=== PATIENT | male | born 1960 | race Caucasian/White ===

== ENCOUNTER 2018-12-26 08:39 | Observation (INO) ==
--- NOTE | 2018-12-13 09:14 | PAT Medication Instructions ---
Medication Instructions Date of Service December 13, 2018 Home Medications aspirin [Aspirin Low Dose] 81 mg PO QAM meloxicam 7.5 mg PO QAM pantoprazole [Protonix] 20 mg PO QAM ASK your surgeon for instructions aspirin [Aspirin Low Dose] 81 mg PO QAM meloxicam 7.5 mg PO QAM Take morning of surgery With a small sip of water, OTHERWISE NOTHING TO EAT OR DRINK AFTER MIDNIGHT: pantoprazole [Protonix] 20 mg PO QAM Other Notes If you have any questions please call us at [phone] or [phone] or [phone] or [phone]
--- NOTE | 2018-12-13 09:24 | Anesthesiology Consultation ---
Date of Service December 13, 2018 Assessment & Plan (1) Encounter for pre-operative examination: - No previous anesthesia/intubation records Chart Review Chart Review: Acceptable Risk for Surgery and Patient seen in Pre Admission Testing Consults Requested none Teaching & Discussion Pre-Anesthesia Teaching/Discussion Notes: Instructed NPO after midnight before surgery, except medications with 15 cc of water. Medication instructions provided according to the PAT guidelines. History Surgery Operation Date: 12/26/18 10:25 Proposed Procedures p C6-C7 Anterior Cervical Discectomy and Fusion, Spinal Cord Monitoring - Delfino Walker DO Height/Weight Height: 6 ft Weight: 82.4 kg Allergies Allergy/AdvReac Type Severity Reaction Status Date / Time No Known Allergies Allergy Verified 12/09/18 12:04 Medications Home Medications Medication Instructions Recorded Confirmed Last Taken aspirin [Aspirin Low Dose] 81 mg PO QAM 12/09/18 12/09/18 Unknown meloxicam 7.5 mg PO QAM 12/09/18 12/09/18 Unknown pantoprazole [Protonix] 20 mg PO QAM 12/09/18 12/09/18 Unknown Past Medical History Medical History Anxiety was on meds but no longer taking Bone spur current issue - also has bulging disc in cervical neck area. left arm numbness, tingling, sharp pain and weakness. has tendency to drop things GERD (gastroesophageal reflux disease) Hx of Lyme disease 2016 Transient ischemic attack (TIA) 1994 no residual efects - Exercise / Class Metabolic Activity III < 4 Walking/Shop/Light housework (Limited since neck pain began. Able to climb FOS. Denies CP or SOB. ) Past Surgical History Surgical History H/O colonoscopy Hx of hernia repair Bilateral Past Anesthesia History No Hx of Anesthesia Complications and No Family Hx of Anesthesia Complications History of PONV No Hx of Motion Sickness and History of PONV (After colonoscopy) Social History Smoking Status: Current some day smoker tobacco type: cigarettes Smoking cigarettes per day: couple x month. Has been smoking for 20+ years off and on. Do You Dip or Chew Tobacco: No Hx Alcohol Use: Yes Alcohol type: wine and hard liquor alcohol intake frequency: a few times a month Hx Substance Use: No Review of Systems Patient denies chest pain, shortness of breath, dyspnea on exertion, palpitations. +Joint Pain (Back/Neck, Shoulder) +Acid Reflux (Controlled with current medications) +Cough/Wheezing (Occasionally when seasonal allergies are acting up) Physical Exam Vital Signs BP: 117/76 P: 84 R: 16 T: 98.4 SPO2: 97% on RA ENMT Mouth: + poor dentition Thyromental Distance: > or= 3.5 Finger Breadths (3.5) Mallampati Class: II Neck normal visual inspection, trachea midline and + limited neck extension Respiratory normal respiratory effort Auscultation: lungs clear to auscultation bilaterally Cardiovascular Rate/Rhythm: regular rate and regular rhythm Heart Sounds: no murmur Vessels: no carotid bruit Neurologic moves all extremities Psychiatric Orientation: alert and oriented x 3 Testing Laboratory Results 12/13/18 09:39 12/13/18 09:39 PT 10.4 Seconds (9.0-12.0) 12/13/18 09:39 INR 1.0 (0.9-1.1) 12/13/18 09:39 APTT 27.8 Seconds (21.0-31.0) 12/13/18 09:39 Urine Color Yellow 12/13/18 09:39 Urine Appearance Clear (Clear) 12/13/18 09:39 Urine pH 6.0 (4.5-7.5) 12/13/18 09:39 Ur Specific [place] 1.024 (1.000-1.030) 12/13/18 09:39 Urine Protein Negative (Negative) 12/13/18 09:39 Urine Glucose (UA) Negative (Negative) 12/13/18 09:39 Urine Ketones Negative (Negative) 12/13/18 09:39 Urine Nitrite Negative (Negative) 12/13/18 09:39 Ur Leukocyte Esterase Negative (Negative) 12/13/18 09:39 Blood Type A Positive 12/13/18 09:39 Antibody Screen NEGATIVE 12/13/18 09:39 Electrocardiogram Date: 12/13/18 Findings: + NSR @ (79) Minimal voltage criteria for LVH, may be normal variant Chest X-Ray Date: 12/13/18 Findings: + NAD FINDINGS: The heart is normal in size. There is no failure. There is no focal pulmonary consolidation. There are no pleural effusions. There is radiographic evidence of emphysema. IMPRESSION: Emphysema. No acute findings.
--- NOTE | 2018-12-13 10:04 | XRay Report ---
XR chest Pre-admission PA/Lat CLINICAL HISTORY: Preoperative chest COMPARISON STUDY: No previous studies for comparison. FINDINGS: The heart is normal in size. There is no failure. There is no focal pulmonary consolidation . There are no pleural effusions. There is radiographic evidence of emphysema.[ IMPRESSION: Emphysema. No acute findings. Electronically signed by: Paco Cortez M.D. 12/13/2018 10:02 AM
[2018-12-13 11:17] LABS: Basophils # (auto) 0.06 K/uL (0-0.2); Eosinophils # (auto) 0.13 K/uL (0-0.5); Eosinophils % (auto) 2.2 %; Hematocrit (blood only) 47.2 % (42-52); Hemoglobin 16.3 g/dL (14.0-18.0); Immature Granulocytes # (auto) 0.02 K/uL (0.00-0.02); Immature Granulocytes % (auto) 0.3 %; Lymphocytes # (auto) 1.71 K/uL (1.2-3.4); Lymphocytes % (auto) 28.6 %; Mean Corpuscular Hgb Conc 34.5 g/dL (32-36); Mean Platelet Volume 11.1 fL (7.4-10.4); Monocytes # (auto) 0.69 K/uL (0.11-0.59); Monocytes % (auto) 11.6 %; Neutrophils # (auto) 3.36 K/uL (1.4-6.5); Neutrophils % (auto) 56.3 %; Platelet Count 268 K/uL (130-400); RDW Coefficient of Variation 13.5 % (11.5-14.5); Red Blood Count 5.13 M/uL (4.7-6.1); White Blood Count 5.97 K/uL (4.8-10.8)
[2018-12-13 11:23] LABS: BUN Creatinine Ratio 27.2 (10-20); Calcium 8.7 mg/dl (8.5-10.1); Creatinine Clr Calc Pharmacy 143.7 ml/min; Est GFR (African American) 127.7; Est GFR (Non-African American) 110.2; Potassium 4.3 mmol/L (3.5-5.1)
[2018-12-13 11:26] LABS: Appearance Urine Clear (Clear); Bilirubin Urine Negative (Negative); Blood Urine Negative (Negative); Color Urine Yellow; Glucose Urine UA Negative (Negative); Ketones Urine Negative (Negative); Leukocyte Esterase Urine Negative (Negative); Nitrite Urine Negative (Negative); Protein Urine Negative (Negative); Specific Gravity Urine 1.024 (1.000-1.030); Urobilinogen Urine Negative (Negative)
[2018-12-13 11:34] LABS: Partial Thromboplastin Time 27.8 Seconds (21.0-31.0); Prothrombin Time 10.4 Seconds (9.0-12.0)
[~2018-12-26 08:39] MED LIST: ACETAMINOPHEN 500 MG TAB PO SCH; CEFAZOLIN 2000MG 2,000 MG/15 ML SYR IV SCH; CeleBREX 200 MG CAP PO SCH; DEXAMETHASONE SOD INJ 4 MG/ML VIAL ONE; GABAPENTIN 600 MG DOSE PO SCH; LIDOCAINE HCL 2% 2 ML VIAL/AMP(20MG/ML) INFIL ONE; LR 15ML/HR IV SCH; MIDAZOLAM HCL 1 MG/ML 2ML VIAL ONE; ONDANSETRON INJ 2 MG/ML 2 ML VIAL ONE; PROPOFOL IV EMULSION 10 MG/ML 20 ML VIAL IV ONE; fentaNYL citrate 100 MCG/2 ML VIAL ONE
[2018-12-26] MEDS ORDERED: ATROPINE SULFATE 0.1 MG/ML 10ML SYR IV PRN (09:24)
[2018-12-26] MEDS ORDERED: ePHEDrine sulfate 50 MG/ML AMP IV PRN (09:24)
[2018-12-26] MEDS ORDERED: fentaNYL citrate 100 MCG/2 ML VIAL IV PRN (09:24)
[2018-12-26] MEDS ORDERED: ONDANSETRON INJ 2 MG/ML 2 ML VIAL IV PRN ×2 (09:24→14:12)
--- NOTE | 2018-12-26 10:31 | History & Physical Bridge Note ---
Date of Service December 26, 2018 History & Physical Bridge Note I have examined the patient, reviewed the History & Physical and in the interval since the performance of the History & Physical I have noted the following changes of clinical significance: no changes noted
--- NOTE | 2018-12-26 10:32 | History & Physical Report ---
Date of Service December 26, 2018 Assessment & Plan (1) Cervical stenosis of spinal canal: Anterior cervical discectomy and fusion C6-7 Present on Admission?: Yes History of Present Illness Chief Complaint: Neck and arm pain Primary Care Provider: Anaya Feldman PA-C This is a 58-year-old male who presents with chronic persistent neck and arm pain. After failing extensive course of nonoperative care is here for surgical intervention. Allergies Allergy/AdvReac Type Severity Reaction Status Date / Time No Known Allergies Allergy Verified 12/26/18 09:33 Home Medications Home Medications Medication Instructions Recorded Confirmed Type aspirin [Aspirin Low Dose] 81 mg PO QAM 12/09/18 12/26/18 History meloxicam 7.5 mg PO QAM 12/09/18 12/26/18 History pantoprazole [Protonix] 20 mg PO QAM 12/09/18 12/26/18 History ibuprofen 800 mg PO Q6H PRN 12/26/18 12/26/18 History Past Med/Surg History Social History Preferred Language: Maltese Communication Ability: Effective Beliefs That Will Affect Care: None Current Living Situation: Alone Feels Safe at Home: Yes Safety Concerns: Feels Safe At This Time Smoking Status: Current some day smoker Tobacco Type: cigarettes Cigarettes Per Day: couple x month. Has been smoking for 20+ years off and on. Do You Dip or Chew Tobacco: No Hx Alcohol Use: Yes Alcohol type: wine and hard liquor Hx Substance Use: No Physical Exam Physical Exam: Patient is alert and oriented and neurologically intact. Results & Data Vital Signs (Past 12 Hours) Vital Signs Temp Pulse Resp BP Pulse Ox 12/26/18 09:39 36.8 C 84 20 146/89 H 97
[2018-12-26] MEDS ORDERED: BACITRACIN INJ 50,000 UNIT VIAL ONE (10:34)
[2018-12-26] MEDS ORDERED: HYDROmorphone INJ 2 MG/ML SYR/VIAL ONE (11:24)
[2018-12-26] MEDS ORDERED: FLOSEAL HEMOSTATIC MATRIX 10ML TOP ONE (11:30)
--- NOTE | 2018-12-26 12:28 | Operative Report ---
Post Operative Report Pre & Post Diagnosis Operation Date: 12/26/18 10:25 Pre-Op Diagnosis: Cervical spinal stenosis with radiculopathy Post-Op Diagnosis: Same Procedure Operation Date: 12/26/18 10:25 Actual Procedures #1 anterior cervical discectomy bilateral foraminotomies C6-7. #2 anterior cervical arthrodesis C6-7. #3 placement of cortical allograft 7 mm in height filled with DBM at C6-7. #4 basement of nuñez plate and screws across C6-7. Surgeon Delfino Walker, Director Property None Estimated Blood Loss 20 Findings Consistent with Post-Op Diagnosis Specimens None Indications This is a 58-year-old male who presents with above-mentioned stenosis. After failing extensive course of nonoperative care he like to undergo the above- mentioned procedure. Description of Procedure Patient was met with identified and informed consent obtained. He was then taken to the operative suite underwent intubation and placed in a supine position Song will head in the [place] sewer. All bony prominences well-padded eyes inspected to ensure no external pressure placed upon the peer at this point the anterior cervical spine was prepped and draped in normal sterile fashion. The assistance of fluoroscopy identified the C6-7 disc space and a transverse incision was placed along the right anterior aspect of the cervical spine overlying this region. Sharp dissection with the assistance of bipolar electrocautery was performed down to and exposing the anterior cervical spine at C6-7. Complete discectomy was then performed out to the uncovertebral joints bilaterally. [place] distracting pins were utilized to assist in visualization. I removed all posterior annular fibers longitudinal ligament bilateral foraminotomies performed. Endplates were then burred to subcortical bleeding bone and a 7 mm cortical allograft with DBM tapped in position. Distraction apparatus was removed and a nuñez plate and screws applied with the assistance of fluoroscopy. The incision was then copiously irrigated explored to ensure no damage to surrounding structures remaining bleeding. 10 round SUNG drain inserted. Incision was then closed with 2 Vicryl in the fascia and 4 Monocryl for final skin closure. Steri-Strip sterile dressings placed. Patient awakened taken to PACU stable condition. Please note spinal cord monitoring was utilized throughout the procedure no changes noted. I attest to the content of the Intraoperative Record and any orders documented therein. Any exceptions are noted below.
--- NOTE | 2018-12-26 12:40 | Fluoroscopy Report ---
FL cervical 2-3V HISTORY: 58 years-old Male ACDF C4-C7 chronic neck pain COMPARISON: None available TECHNIQUE: 2 Spot fluoroscopic images of the cervical spine were obtained utilizing 9.9 seconds fluor oscopy time FINDINGS: Anterior plate and screw fusion at C6-C7, C7 not visualized on the lateral view secondary to position ing. Multilevel disc space narrowing with spondylitic spurring and facet arthrosis. No fracture or ma lalignment identified on these images. Endotracheal tube noted. IMPRESSION: Fluoroscopic assistance as above. Please see operative report for further details. The above report was generated using voice recognition software. It may contain grammatical, syntax o r spelling errors. Electronically signed by: Carter Villegas M.D. 12/26/2018 12:39 PM
--- NOTE | 2018-12-26 13:53 | Anesthesiology Progress Note ---
Date of Service December 26, 2018 Anesthesia Post Procedure Vital Signs Vital Signs: Temp Pulse Pulse Resp BP Pulse Ox 12/26/18 13:45 97.3 F L 89 12 125/83 95 12/26/18 13:35 69 12 125/86 95 12/26/18 13:25 76 12 121/81 95 12/26/18 13:15 74 17 126/83 93 12/26/18 13:05 76 18 124/81 95 12/26/18 12:55 76 18 123/95 98 12/26/18 12:45 79 12 128/86 98 12/26/18 12:37 97.2 F L 83 16 134/86 98 12/26/18 09:39 98.2 F 84 20 146/89 H 97 Pain Intensity Left Neck: Pain Intensity: 3 Neck: Pain Intensity: 3 Transfer of Care Handoff Completed per policy Notes Mental Status: alert / awake / arousable and participated in evaluation Patient Amnestic to Procedure: Yes Nausea / Vomiting: adequately controlled Pain: adequately controlled Airway Patency, RR, SpO2: stable & adequate BP & HR: stable & adequate Hydration State: stable & adequate Anesthetic Complications: no major complications apparent and Pt Satisfied with anesthetic care
[2018-12-26] MEDS ORDERED: DEXAMETHASONE SOD PHOSPHATE 8 MG in SYRINGE 0 ML IV PRN (14:12)
[2018-12-26] MEDS ORDERED: DiphenhydrAMINE HCL 50 MG/ML VIAL IV PRN (14:12)
[2018-12-26] MEDS ORDERED: OXYCODONE HCL IR 5 MG TAB (IMMEDIATE RELEASE) PO PRN (14:12)
[2018-12-26] MEDS ORDERED: LORazepam 0.5 MG/1 ML VIAL IV PRN (14:12)
[2018-12-26] MEDS ORDERED: HYDROmorphone INJ 0.5 MG/0.5 ML SYR IV PRN (14:12)
[2018-12-26] MEDS ORDERED: DO NOT ADMINISTER PNEUMOCOCCAL VACCINE PRN (14:12)
[2018-12-26] MEDS ORDERED: ACETAMINOPHEN 1,000 MG/100 ML VIAL IV PRN (14:12)
[2018-12-26] MEDS ORDERED: NALOXONE HCL 0.4 MG/1 ML VIAL/CARP IV PRN (14:12)
[2018-12-26] MEDS ORDERED: DO NOT ADMINISTER FLU VACCINE PRN (14:12)
[2018-12-26] MEDS ORDERED: MAGNESIUM HYDROXIDE SUSP 30 ML UDC PO PRN (14:12)
[2018-12-26] MEDS ORDERED: RACEPINEPHRINE 2.25% NEBU SOLN 0.5 ML VIAL INH PRN (14:12)
[2018-12-26] MEDS ORDERED: LORazepam 0.5 MG TAB PO PRN (14:12)
[2018-12-26] MEDS ORDERED: SCOPOLAMINE 1.5 MG TDSY TD SCH (15:00)
[2018-12-26] MEDS: CHECK SCOPOLAMINE PATCH PLACEMENT SCH ×2 (16:07→23:59)
[2018-12-26] MEDS: LACTATED RINGER'S 1,000 ML IV SCH (18:50)
[2018-12-26] MEDS: CEFAZOLIN 2000MG 2,000 MG/15 ML SYR IV SCH (18:55)
[2018-12-26] MEDS: DOCUSATE SODIUM 100 MG CAP PO SCH (21:19)
[2018-12-27] MEDS: LACTATED RINGER'S 1,000 ML IV SCH (03:16)
[2018-12-27] MEDS: CEFAZOLIN 2000MG 2,000 MG/15 ML SYR IV SCH ×2 (03:17→10:18)
[2018-12-27 05:13] VITALS: TEMP 98.1
--- NOTE | 2018-12-27 07:46 | Anesthesiology Progress Note ---
Date of Service December 27, 2018 Anesthesia Post Procedure Vital Signs Vital Signs: Temp Pulse Pulse Pulse Resp BP BP 12/27/18 07:08 89 14 12/27/18 06:59 36.7 C 88 14 138/88 12/27/18 05:12 36.7 C 95 H 16 145/80 H 12/27/18 03:18 36.8 C 90 16 133/80 12/27/18 03:10 88 14 12/27/18 01:05 36.9 C 93 H 16 156/83 H 12/26/18 23:11 89 16 12/26/18 23:00 36.9 C 88 16 145/83 H 12/26/18 21:16 85 16 141/85 H 12/26/18 19:08 102 H 16 12/26/18 18:55 106 H 16 144/90 H 12/26/18 17:00 84 16 128/84 12/26/18 15:53 36.5 C 89 16 126/87 12/26/18 15:32 71 16 12/26/18 15:29 77 16 12/26/18 14:00 36.5 C 80 16 133/85 12/26/18 13:45 36.3 C L 89 12 125/83 12/26/18 13:35 69 12 125/86 12/26/18 13:25 76 12 121/81 12/26/18 13:15 74 17 126/83 12/26/18 13:05 76 18 124/81 12/26/18 12:55 76 18 123/95 12/26/18 12:45 79 12 128/86 12/26/18 12:37 36.2 C L 83 16 134/86 12/26/18 09:39 36.8 C 84 20 146/89 H Pulse Ox 12/27/18 07:08 93 12/27/18 06:59 92 12/27/18 05:12 92 12/27/18 03:18 93 12/27/18 03:10 92 12/27/18 01:05 92 12/26/18 23:11 92 12/26/18 23:00 92 12/26/18 21:16 92 12/26/18 19:08 94 12/26/18 18:55 94 12/26/18 17:00 95 12/26/18 15:53 97 12/26/18 15:32 96 12/26/18 15:29 96 12/26/18 14:00 96 12/26/18 13:45 95 12/26/18 13:35 95 12/26/18 13:25 95 12/26/18 13:15 93 12/26/18 13:05 95 12/26/18 12:55 98 12/26/18 12:45 98 12/26/18 12:37 98 12/26/18 09:39 97 Pain Intensity Left Neck: Pain Intensity: 3 Neck: Pain Intensity: 2 Notes Mental Status: alert / awake / arousable and participated in evaluation Patient Amnestic to Procedure: Yes Nausea / Vomiting: adequately controlled Pain: adequately controlled Airway Patency, RR, SpO2: stable & adequate BP & HR: stable & adequate Hydration State: stable & adequate Anesthetic Complications: no major complications apparent and Pt Satisfied with anesthetic care
[2018-12-27] MEDS: DOCUSATE SODIUM 100 MG CAP PO SCH (08:26)
[2018-12-27] MEDS: CHECK SCOPOLAMINE PATCH PLACEMENT SCH (08:26)
[2018-12-27] MEDS ORDERED: ASPIRIN 81 MG ECTAB PO SCH (09:00)
[2018-12-27] MEDS ORDERED: PANTOprazole 40 MG TAB PO SCH (09:00)
[2018-12-27 09:06] VITALS: BP 104/77; PULSE 94; O2SAT 95
--- NOTE | 2018-12-27 14:42 | Discharge Summary ---
Date of Service December 27, 2018 Admission HPI Per Admitting Provider This is a 58-year-old male who presents with chronic persistent neck and arm pain. After failing extensive course of nonoperative care is here for surgical intervention. Principal Diagnosis Cervical spinal stenosis with radiculopathy Discharge Data Allergies Allergy/AdvReac Type Severity Reaction Status Date / Time No Known Allergies Allergy Verified 12/26/18 09:33 Procedures Performed Operation Date: 12/26/18 10:25 Actual Procedures p C6-C7 Anterior Cervical Discectomy and Fusion, Spinal Cord Monitoring(Not Applicable) - Delfino Walker DO Ordered Studies 12/26/18 10:25 FL cervical 2-3V Routine FL fluoroscopy <1hr Routine Hospital Course (1) Cervical stenosis of spinal canal: Patient underwent anterior cervical discectomy and fusion C6-7 tolerated this well was taken to the orthopedic for postoperative. Postop day #1 swallowing well. No significant pain. Arm symptoms improved. Swallowing well. Subsequently discharged home. Discharge orders instructions from the chart for further review. Total Time Total Time Spent Total Time Spent (In Minutes): 10 minutes Discharge Plan Discharge Items Patient Disposition: Home - Self-Care Reason For Visit: Spinal Stenosis, Cervical Region Discharge Diagnosis: cervical stenosis Discharge Goals: Decrease discomfort Activity: Per 'Additional Instructions' section Non-emergency contact: Primary Care Provider Call non-emergency contact if: you have any medication questions Follow-up/Referrals: Anaya Feldman PA-C [Primary Care Provider] - Diet: Regular Addtl Provider Instructions: ACTIVITY RECOMMENDATIONS: SELF CARE INSTRUCTIONS AFTER CERVICAL FUSIONS 1. No smoking. Smoking drastically decreases the chance of a solid fusion. 2. No bending, lifting more than 5 pounds, or twisting (roll like a log when turning in bed). 3. You may shower 3 days after surgery. Thoroughly dry wound. Do not soak in the tub. 4. Cervical collar: Must be worn at all times including sleeping. You may remove the brace only to bath, eat and if you are sitting in a recliner. 5. Please walk as much as you can for exercise. Gradually increase the distance that you walk as your endurance increases. SPECIAL CARE INSTRUCTIONS: VERY IMPORTANT TO READ AND REVIEW A. Do not take any anti-inflammatory medications (i.e. Indocin, Advil, Aspirin, Naprosyn, Aleve, Motrin, etc.) as these may inhibit the chance of a solid fusion. Tylenol is okay to take. B. Your surgical incision has been closed with a cosmetic suture under the skin that will dissolve in about 6 weeks. In 14 days, you can use a pair of clean scissors and cut the suture that is left outside of the skin at the ends of your incision. C. Complications are uncommon, but please contact us if you have any signs or symptoms of: 1. wound infection (fever higher than 102.5 degrees F, redness, separation of wound, drainage, or increasing pain from the incision) 2. blood clots in legs (pain, swelling, redness and warmth in legs) 3. urinary tract infection (fever higher than 102.5 degrees, burning upon urination or increased frequency of urination) 4. nerve problems (inability to walk on your toes or heels, numbness, loss of bowel or bladder control) 5. any other symptoms that concern you. D. Please call the office at if you have any concerns or questions about your operation or recovery. MANAGING PAIN AFTER SPINAL SURGERY 1. Narcotic medication is intended for short-term use and will be provided for surgical pain. Surgical pain usually lasts for a period of 4-6 weeks. Narcotic medication includes Percocet, Vicodin, Darvocet, Tylenol #3 or Lortab. 2. Longer-term pain is more appropriately treated with non-narcotic medication such as Tylenol ES. 3. Muscle spasm is not appropriately treated with narcotics. Muscle relaxers such as Soma, Flexeril or Skelaxin can be used along with Tylenol ES. 4. Remember that we all live with some "aches and pains". This is not unusual or uncommon after an injury or as we get older. 5. We will provide appropriate medication within the normal guidelines of their prescribed use. We will also be very cautious and aware of potential abuse and extended duration of patients' medication needs. 6. Please allow 2-3 days to process refills. Prescriptions will not be mailed but must be picked up at the office. FOLLOW UP VISIT: Keep your scheduled follow-up appointment. Any questions, please call the office at . Prescriptions: Continued aspirin [Aspirin Low Dose] 81 mg Tablet,Delayed Release (Dr/Ec) 81 mg PO QAM RF: 0 pantoprazole [Protonix] 20 mg Tablet,Delayed Release (Dr/Ec) 20 mg PO QAM RF: 0 Discontinued meloxicam 7.5 mg Tablet 7.5 mg PO QAM RF: 0 ibuprofen 200 mg Capsule 800 mg PO Q6H PRN (Reason: Pain) RF: 0 Stand-Alone Forms: [facility]/Other Patient Handouts: DVT Prevent Discharge Orders: Discharge Order (Routine); Ordered 12/27/18 Ordered By: Delfino Walker Admission Data Admit Date/Time: 12/26/18 12:32 Attending Provider: Delfino Walker Admit Provider: Delfino Walker Primary Care Provider: Anaya Feldman Service: Surgical Services Other Interventions: Discharge Summary Assessment (RN) Last Done: 12/27/18 09:49 DC Date/Time DO NOT enter until pt leaves facility: 12/27/18 10:30
== END 2018-12-27 10:30 | disposition home or self-care (01) ==
LOC: ASU 08:39 → 3E 08:39